=== PATIENT | male | born 1980 | race American Indian/Alaskan Native ===

== ENCOUNTER 2017-11-07 23:01 | Emergency (ER) | payer OTHER ==
[2017-11-07 23:35] VITALS: BMI 21.6
--- NOTE | 2017-11-07 23:37 | ED PDOC ---
Arrival/HPI - General Historian: Patient - History of Present Illness Time/Duration: Other (see hpi) Context: Home <Nick Diego - Last Filed: 11/08/17 01:55> <Adrián Whitney - Last Filed: 11/08/17 06:18> - General Chief Complaint: Psychiatric Evaluation Time Seen by Provider: 11/07/17 23:23 - History of Present Illness Narrative History of Present Illness (Text): 11/07/17 23:34 This 37 yo male who [facility], homeless, presents to this Emergency department complaining of feeling depressed, and ideas to hurt other people for few days. Patient denies sob, cp, abdominal pain, urinary symptoms, or abnormal gait. (Nick Diego) Past Medical History - Provider Review Nursing Documentation Reviewed: Yes - Cardiac Hx Cardiac Disorders: No - Pulmonary Hx Respiratory Disorders: No - Neurological Hx Neurological Disorder: No - HEENT Hx HEENT Disorder: No - Renal Hx Renal Disorder: No - Endocrine/Metabolic Hx Endocrine Disorders: No - Hematological/Oncological Hx Blood Disorders: No - Integumentary Hx Dermatological Disorder: No - Musculoskeletal/Rheumatological Hx Musculoskeletal Disorders: No - Gastrointestinal Hx Gastrointestinal Disorders: No - Genitourinary/Gynecological Hx Genitourinary Disorders: No - Psychiatric Hx Anxiety: Yes Hx Depression: Yes Hx Substance Use: No <Nick Diego - Last Filed: 11/08/17 01:55> Family/Social History - Physician Review Nursing Documentation Reviewed: Yes Family/Social History: Other (noncontributory) Smoking Status: Current Some Days Smoker Hx Alcohol Use: Yes Hx Substance Use: No <Nick Diego - Last Filed: 11/08/17 01:55> Allergies/Home Meds <Nick Diego - Last Filed: 11/08/17 01:55> <Adrián Whitney - Last Filed: 11/08/17 06:18> Allergies/Adverse Reactions: Allergies shellfish derived Allergy (Verified 11/07/17 23:27) SWELLING Home Medications: Home Meds Medication Instructions Recorded Confirmed No Known Home Med 11/07/17 11/07/17 Review of Systems - Review of Systems Constitutional: Normal. absent: Fatigue, Weight Change, Fevers, Night Sweats Eyes: Normal ENT: Normal Respiratory: Normal Cardiovascular: Normal Gastrointestinal: Normal Genitourinary Male: Normal Musculoskeletal: Normal Skin: Normal Neurological: Normal Endocrine: Normal Hemo/Lymphatic: Normal Psychiatric: Depression, Other (see hpi) <Nick Diego - Last Filed: 11/08/17 01:55> Physical Exam Temperature: Afebrile Blood Pressure: Normal Pulse: Regular Respiratory Rate: Normal Appearance: Positive for: Well-Appearing, Non-Toxic, Comfortable Pain Distress: None Mental Status: Positive for: Alert and Oriented X 3 - Systems Exam Head: Present: Atraumatic, Normocephalic Pupils: Present: PERRL Extroacular Muscles: Present: EOMI Conjunctiva: Present: Normal Mouth: Present: Moist Mucous Membranes Neck: Present: Normal Range of Motion Respiratory/Chest: Present: Clear to Auscultation, Good Air Exchange. No: Respiratory Distress, Accessory Muscle Use Cardiovascular: Present: Regular Rate and Rhythm, Normal S1, S2. No: Murmurs Abdomen: Present: Normal Bowel Sounds. No: Tenderness, Distention, Peritoneal Signs Back: Present: Normal Inspection Upper Extremity: Present: Normal Inspection. No: Cyanosis, Edema Lower Extremity: Present: Normal Inspection. No: Edema Neurological: Present: GCS=15, CN II-XII Intact, Speech Normal Skin: Present: Warm, Dry, Normal Color. No: Rashes Psychiatric: Present: Alert, Oriented x 3, Intoxicated (mild) <Nick Diego - Last Filed: 11/08/17 01:55> Vital Signs Temp Pulse Resp BP Pulse Ox 11/08/17 05:38 85 18 117/69 100 11/07/17 23:36 98.1 F 80 16 127/69 96 Medical Decision Making <Nick Diego - Last Filed: 11/08/17 01:55> - Transfer of Care Patient signed out to Dr:: Jarad Other: Patient sobriety/PES evaluation/Final disposition <Adrián Whitney - Last Filed: 11/08/17 06:18> ED Course and Treatment: 11/08/17 01:56 PES screener came to see patient. Patient is sleeping. Alcohol level was elevated. Patient will be able to see screener tomorrow after 7 am, as per PES (Nick Diego) 11/08/17 06:00 Attempt at interview by PES unsuccessful as pt. remains intoxicated.Will endorse to oncoming attending for follow up. (Adrián Whitney) - Lab Interpretations Lab Results: 11/08/17 00:01 11/08/17 00:01 Lab Results 11/08/17 01:50: Urine Opiates Screen Negative, Urine Methadone Screen Negative, Ur Barbiturates Screen Negative, Ur Phencyclidine Scrn Negative, Ur Amphetamines Screen Negative, U Benzodiazepines Scrn Negative, U Oth Cocaine Metabols Negative, U Cannabinoids Screen Negative 11/08/17 00:01: Alcohol, Quantitative 377 H* 11/08/17 00:01: Salicylates < 1 L, Acetaminophen < 10.0 L 11/08/17 00:01: Sodium 147, Potassium 4.1, Chloride 109 H, Carbon Dioxide 24, Anion Gap 18, BUN 12, Creatinine 0.8, Est GFR ( Amer) > 60, Est GFR (Non- Af Amer) > 60, Random Glucose 90, Calcium 9.0, Total Bilirubin < 0.1 L, AST 49, ALT 32, Alkaline Phosphatase 63, Total Protein 7.6, Albumin 4.3, Globulin 3.3, Albumin/Globulin Ratio 1.3 11/08/17 00:01: Urine Color Yellow, Urine Appearance Clear, Urine pH 6.0, Ur Specific [place] <= 1.005, Urine Protein Negative, Urine Glucose (UA) Negative, Urine Ketones Negative, Urine Blood Negative, Urine Nitrate Negative, Urine Bilirubin Negative, Urine Urobilinogen 0.2, Ur Leukocyte Esterase Negative 11/08/17 00:01: WBC 7.6, RBC 3.85, Hgb 12.2 L, Hct 35.8 L, MCV 93.0, MCH 31.7, MCHC 34.1, RDW 13.5, Plt Count 155, MPV 8.2, Gran % 35.2 L, Lymph % (Auto) 58.4 H, [place] % (Auto) 4.2, Eos % (Auto) 1.7, Baso % (Auto) 0.5, Gran # 2.67, Lymph # (Auto) 4.4 H, [place] # (Auto) 0.3, Eos # (Auto) 0.1, Baso # (Auto) 0.04 - RAD Interpretation Radiology Orders: 11/07/17 23:33 CHEST PORTABLE [RAD] Stat - Medication Orders Current Medication Orders: Discontinued Medications Multivitamins/Vitamin C 10 ml/Thiamine HCl 100 mg/ Folic Acid 1 mg/ Sodium Chloride 1,011.2 mls @ 1,000 mls/hr IV .Q1H1M ONE Stop: 11/08/17 01:03 Last Admin: 11/08/17 00:40 Dose: 1,000 mls/hr eMAR Start Stop Document 11/08/17 00:40 AD (Rec: 11/08/17 00:40 AD [facility] [id number] Intravenous Solution Start Date 11/08/17 Start Time 00:40 Lorazepam (Ativan) 1 mg PO ONCE ONE PRN Reason: Protocol Stop: 11/08/17 00:03 Last Admin: 11/08/17 00:39 Dose: 1 mg - PA / CLINICAL SUPERVISOR / Resident Statement / has reviewed & agrees with the documentation as recorded. / has examined the patient and agrees with the treatment plan. <Adrián Whitney - Last Filed: 11/08/17 06:18> Disposition/Present on Arrival - Present on Arrival History of DVT/PE: No History of Uncontrolled Diabetes: No Urinary Catheter: No History of Decub. Ulcer: No History Surgical Site Infection Following: None <Nick Diego - Last Filed: 11/08/17 01:55> - Present on Arrival Any Indicators Present on Arrival: No - Disposition Have Diagnosis and Disposition been Completed?: No Disposition Time: 07:00 <Adrián Whitney - Last Filed: 11/08/17 06:18> - Disposition Diagnosis: Alcohol intoxication, Depression Patient Problems: Current Active Problems Problem Status Onset Alcohol intoxication Acute Depression Acute Condition: STABLE Referrals: Rhett Lepe MD [Primary Care Provider] - Follow up with primary Forms: [employer] ([place])
[2017-11-08] MEDS ORDERED: Multivitamin (MVI) 10 ML, Thiamine 100 MG, Folic Acid 1 MG in Sodium Chloride 0.9% 1,00... IV ONE (00:03)
[2017-11-08 00:27] LABS: URINE BILIRUBIN NEGATIVE (NEGATIVE); URINE BLOOD NEGATIVE (NEGATIVE); URINE GLUCOSE (UA) NEGATIVE (NEGATIVE); URINE LEUKOCYTE ESTERASE NEGATIVE Leu/uL (NEGATIVE); URINE NITRATE NEGATIVE (NEGATIVE); URINE PROTEIN NEGATIVE mg/dL (<30 mg/dL); URINE UROBILINOGEN 0.2 E.U./dL (<1 E.U./dL)
[2017-11-08 00:29] LABS: BASO # 0.04 K/mm3 (0.0-2.0); BASO % 0.5 % (0.0-3.0); EOS # 0.1 (0.0-0.7); EOS % 1.7 % (1.5-5.0); GRAN # 2.67 (1.4-6.5); GRAN % 35.2 % (50.0-68.0); HEMOGLOBIN 12.2 g/dL (14.0-18.0); LYMPH # 4.4 (1.2-3.4); LYMPH % 58.4 % (22.0-35.0); MEAN CORPUSCULAR HEMOGLOBIN 31.7 pg (25.0-35.0); MEAN CORPUSCULAR HGB CONC 34.1 g/dl (31.0-37.0); MEAN PLATELET VOLUME 8.2 fl (7.0-11.0); MONO # 0.3 (0.1-0.6); MONO % 4.2 % (1.0-6.0); RBC 3.85 10^6/uL (3.5-6.1); RED CELL DISTRIBUTION WIDTH 13.5 % (11.5-14.5); WHITE BLOOD COUNT 7.6 10^3/ul (4.5-11.0)
[2017-11-08 00:37] LABS: URINE APPEARANCE CLEAR (CLEAR); URINE COLOR YELLOW (YELLOW)
[2017-11-08 00:50] LABS: ACETAMINOPHEN < 10.0 ug/ml (10.0-20.0); SALICYLATE < 1 mg/dL (2.0-20.0)
[2017-11-08 00:53] LABS: ALB/GLOB RATIO 1.3 (1.1-1.8); ALBUMIN 4.3 g/dL (3.0-4.8); ALT/SGPT 32 U/L (7-56); AST/SGOT 49 U/L (17-59); BLOOD UREA NITROGEN 12 mg/dL (7-21); GFR AFRICAN-AMERICAN > 60; GFR NON-AFRICAN AMERICAN > 60
[2017-11-08 03:04] LABS: BARBITURATES, UR NEGATIVE (NEGATIVE); BENZODIAZEPINES, UR NEGATIVE (NEGATIVE); OPIATES, UR NEGATIVE (NEGATIVE); PHENCYCLIDINE, UR NEGATIVE (NEGATIVE)
--- NOTE | 2017-11-08 07:20 | ED PDOC ---
Physical Exam Vital Signs Reviewed: Yes Vital Signs Temp Pulse Resp BP Pulse Ox 11/08/17 10:13 98.4 F 81 17 137/80 98 11/08/17 07:30 98.6 F 82 14 120/70 97 11/08/17 05:38 85 18 117/69 100 11/07/17 23:36 98.1 F 80 16 127/69 96 Temperature: Afebrile Blood Pressure: Normal Pulse: Regular Respiratory Rate: Normal Appearance: Positive for: Well-Appearing, Non-Toxic, Comfortable Pain Distress: None Mental Status: Positive for: Alert and Oriented X 3 Medical Decision Making ED Course and Treatment: 11/08/17 07:20 Case signed out to me by Dr. Whitney. Patient with alcohol intoxication. Pending sobriety, assessment, final disposition. 11/08/17 10:59 stable for discharge - Lab Interpretations Lab Results: 11/08/17 00:01 11/08/17 00:01 Lab Results 11/08/17 01:50: Urine Opiates Screen Negative, Urine Methadone Screen Negative, Ur Barbiturates Screen Negative, Ur Phencyclidine Scrn Negative, Ur Amphetamines Screen Negative, U Benzodiazepines Scrn Negative, U Oth Cocaine Metabols Negative, U Cannabinoids Screen Negative 11/08/17 00:01: Alcohol, Quantitative 377 H* 11/08/17 00:01: Salicylates < 1 L, Acetaminophen < 10.0 L 11/08/17 00:01: Sodium 147, Potassium 4.1, Chloride 109 H, Carbon Dioxide 24, Anion Gap 18, BUN 12, Creatinine 0.8, Est GFR ( Amer) > 60, Est GFR (Non- Af Amer) > 60, Random Glucose 90, Calcium 9.0, Total Bilirubin < 0.1 L, AST 49, ALT 32, Alkaline Phosphatase 63, Total Protein 7.6, Albumin 4.3, Globulin 3.3, Albumin/Globulin Ratio 1.3 11/08/17 00:01: Urine Color Yellow, Urine Appearance Clear, Urine pH 6.0, Ur Specific [place] <= 1.005, Urine Protein Negative, Urine Glucose (UA) Negative, Urine Ketones Negative, Urine Blood Negative, Urine Nitrate Negative, Urine Bilirubin Negative, Urine Urobilinogen 0.2, Ur Leukocyte Esterase Negative 11/08/17 00:01: WBC 7.6, RBC 3.85, Hgb 12.2 L, Hct 35.8 L, MCV 93.0, MCH 31.7, MCHC 34.1, RDW 13.5, Plt Count 155, MPV 8.2, Gran % 35.2 L, Lymph % (Auto) 58.4 H, [place] % (Auto) 4.2, Eos % (Auto) 1.7, Baso % (Auto) 0.5, Gran # 2.67, Lymph # (Auto) 4.4 H, [place] # (Auto) 0.3, Eos # (Auto) 0.1, Baso # (Auto) 0.04 I have reviewed the lab results: Yes - RAD Interpretation Radiology Orders: 11/07/17 23:33 CHEST PORTABLE [RAD] Stat - Medication Orders Current Medication Orders: Discontinued Medications Multivitamins/Vitamin C 10 ml/Thiamine HCl 100 mg/ Folic Acid 1 mg/ Sodium Chloride 1,011.2 mls @ 1,000 mls/hr IV .Q1H1M ONE Stop: 11/08/17 01:03 Last Admin: 11/08/17 00:40 Dose: 1,000 mls/hr eMAR Start Stop Document 11/08/17 00:40 AD (Rec: 11/08/17 00:40 AD [facility] [id number] Intravenous Solution Start Date 11/08/17 Start Time 00:40 Lorazepam (Ativan) 1 mg PO ONCE ONE PRN Reason: Protocol Stop: 11/08/17 00:03 Last Admin: 11/08/17 00:39 Dose: 1 mg - Scribe Statement The provider has reviewed the documentation as recorded by the Keaton Eng Provider Scribe Attestation: All medical record entries made by the Keaton were at my direction and personally dictated by me. I have reviewed the chart and agree that the record accurately reflects my personal performance of the history, physical exam, medical decision making, and the department course for this patient. I have also personally directed, reviewed, and agree with the discharge instructions and disposition. Disposition/Present on Arrival - Present on Arrival Any Indicators Present on Arrival: No History of DVT/PE: No History of Uncontrolled Diabetes: No Urinary Catheter: No History of Decub. Ulcer: No History Surgical Site Infection Following: None - Disposition Have Diagnosis and Disposition been Completed?: Yes Diagnosis: Alcohol intoxication, Depression Disposition: HOME/ ROUTINE Disposition Time: 11:00 Patient Problems: Current Active Problems Problem Status Onset Alcohol intoxication Acute Depression Acute Condition: STABLE Additional Instructions: Follow up as advised Referrals: Rhett Lepe MD [Primary Care Provider] - Follow up with primary Forms: [employer] (German)
--- NOTE | 2017-11-08 08:45 | RAD ---
HISTORY: PES eval COMPARISON: No prior. FINDINGS: LUNGS: No active pulmonary disease. PLEURA: No significant pleural effusion identified, no pneumothorax apparent. CARDIOVASCULAR: Normal. OSSEOUS STRUCTURES: No significant abnormalities. VISUALIZED UPPER ABDOMEN: Normal. OTHER FINDINGS: None. IMPRESSION: No active disease.
[2017-11-08 10:15] VITALS: RESP 17; O2SAT 98
--- NOTE | 2017-11-08 10:24 | CARD ---
APPROVED REPORT EKG Measurement Heart [id number] <Conclusion> Sinus tachycardia Incomplete right bundle branch block Prolonged QTc
[2017-11-08 11:29] VITALS: BP 124/74; PULSE 80; TEMP 98
== END 2017-11-08 11:11 | disposition home or self-care (01) ==
LOC: ED 23:01
DX: F32.9 Major depressive disorder, single episode, unspecified (principal); F10.129 Alcohol abuse with intoxication, unspecified; Y90.8 Blood alcohol level of 240 mg/100 ml or more
CPT/HCPCS: 71045; 80053; 80320; 80324; 80329; 80345; 80346; 80349; 80353; 80358; 80361; 81003; 83992; 85025; 90791; 93005; 96374; 99285; J3411; J7040